=== PATIENT | male | born 1995 | race Caucasian/White ===

== ENCOUNTER 2018-10-31 13:08 | Emergency (ER) | payer BC ==
[2018-10-31 13:14] VITALS: BMI 28.7
[2018-10-31 13:16] VITALS: BP 135/77; PULSE 65; RESP 18; TEMP 98.1; O2SAT 99
--- NOTE | 2018-10-31 13:34 | ED PDOC ---
Upper Extremity Pain/Injury Time Seen by Provider: 10/31/18 13:19 Chief Complaint (Nursing): Finger,Hand,&Wrist Chief Complaint (Provider): Finger,Hand,&Wrist History Per: Patient History/Exam Limitations: no limitations Onset/Duration Of Symptoms: Days (x3) Current Symptoms Are (Timing): Still Present Additional Complaint(s): 23 year old right-hand dominant male, presents to the ED with a complaint of left wrist pain that exacerbates with bending status post heavy lifting 3 days ago. He denies any weakness or numbness. Patient reports using Motrin and Bengay ointment for relief but, also, admits to continuos heavy lifting since onset. Last Motrin use at 0300 earlier today. PCP: none provided Past Medical History Reviewed: Historical Data, Nursing Documentation, Vital Signs Vital Signs: Last Vital Signs Temp 98.1 F 10/31/18 13:15 Pulse 65 10/31/18 13:15 Resp 18 10/31/18 13:15 BP 135/77 10/31/18 13:15 Pulse Ox 99 10/31/18 13:15 - Medical History PMH: No Chronic Diseases - Surgical History Surgical History: Denies: No Surg Hx Other surgeries: heart surgery as an infant- cannot recall what was done - Family History Family History: States: Unknown Family Hx - Home Medications Home Medications: Ambulatory Orders Medication Instructions Recorded Ibuprofen [Motrin Tab] 1 tab PO Q6 PRN #20 tab 10/31/18 - Allergies Allergies/Adverse Reactions: Allergies Allergy/AdvReac Type Severity Reaction Status Date / Time No Known Allergies Allergy Verified 10/31/18 13:14 Review of Systems ROS Statement: Except As Marked, All Systems Reviewed And Found Negative Musculoskeletal: Positive for: Hand Pain (left wrist) Neurological: Negative for: Weakness, Numbness Physical Exam - Reviewed Nursing Documentation Reviewed: Yes Vital Signs Reviewed: Yes - Physical Exam Appears: Positive for: Well, Non-toxic, No Acute Distress Pulses-Radial (L): 2+ Extremity: Positive for: Normal ROM (extension of left wrist), Tenderness (dorsal radial aspect of left wrist on palpation with limited ROM on flexion secondary to pain), Capillary Refill (< 2 seconds to left wrist). Negative for: Deformity (left hand), Swelling (left hand) Neurologic/Psych: Positive for: Alert, Oriented. Negative for: Motor/Sensory Deficits - ECG O2 Sat by Pulse Oximetry: 99 (RA) Pulse Ox Interpretation: Normal Medical Decision Making Medical Decision Making: Time: 2 Initial Plan: * Motrin 600mg PO * XR left wrist Time: 5 --XR left wrist FINDINGS: BONES: Bone alignment and mineralization are normal. There is no acute displaced fracture or bone destruction. There is negative ulnar variance. JOINTS: Normal. No dislocation. SOFT TISSUES: Normal. OTHER FINDINGS: None. IMPRESSION: No acute fracture or dislocation. Negative ulnar variance. Time: 1433 --Immobilizer placed for left wrist. Upon provider re-evaluation, patient is medically stable, reports improvement in symptoms, and requires no further treatment in the ED at this time. Patient will be discharged home with Rx for Motrin and provided instructions for RICE method. Counseling was provided and all questions were answered regarding diagnosis. There is agreement to discharge plan. Advised to follow up with an orthopedist or return to ED if symptoms persist or worsen. Clinical Impression: Left wrist sprain --------- -------- Scribe Attestation: Documented by Anamaria Ordonez, acting as a scribe for Yumiko Fay PA-C. Provider Scribe Attestation: All medical record entries made by the Scribe were at my direction and personally dictated by me. I have reviewed the chart and agree that the record accurately reflects my personal performance of the history, physical exam, medical decision making, and the department course for this patient. I have also personally directed, reviewed, and agree with the discharge instructions and disposition. Disposition - Clinical Impression Clinical Impression: Left wrist sprain - Patient ED Disposition Is Patient to be Admitted: No Counseled Patient/Family Regarding: Studies Performed, Diagnosis, Need For Followup, Rx Given - Disposition Referrals: Esthela Wilson MD [Staff Provider] - Disposition: Routine/Home Disposition Time: 14:33 Condition: IMPROVED Prescriptions: Ibuprofen [Motrin Tab] 1 tab PO Q6 PRN #20 tab PRN Reason: Pain, Moderate (4-7) Instructions: Wrist Sprain (DC) Forms: [employer] (Italian), [facility] ED School/Work Excuse
--- NOTE | 2018-10-31 14:28 | RAD ---
Date of service: 10/31/2018 PROCEDURE: Left Wrist Radiographs. HISTORY: pain dorsal aspect COMPARISON: None. FINDINGS: BONES: Bone alignment and mineralization are normal. There is no acute displaced fracture or bone destruction. There is negative ulnar variance. JOINTS: Normal. No dislocation. SOFT TISSUES: Normal. OTHER FINDINGS: None. IMPRESSION: No acute fracture or dislocation. Negative ulnar variance.
== END 2018-10-31 15:07 | disposition home or self-care (01) ==
LOC: H.ER 13:08
DX: S63.502A Unspecified sprain of left wrist, initial encounter (principal); X50.0XXA Overexertion from strenuous movement or load, initial encounter

== ENCOUNTER 2019-02-12 13:35 | Emergency (ER) | payer BC ==
[2019-02-12 13:39] VITALS: BMI 30.9
[2019-02-12 13:40] VITALS: RESP 20; O2SAT 98
--- NOTE | 2019-02-12 14:30 | RAD ---
Date of service: 02/12/2019 PROCEDURE: Left Knee Radiographs. HISTORY: Pain. COMPARISON: None. TECHNIQUE: 2 views obtained. FINDINGS: BONES: Normal. No fracture. JOINTS: Normal. No osteoarthritis. JOINT EFFUSION: OTHER FINDINGS: None. IMPRESSION: No evidence of acute displaced fracture nor dislocation. Questionable small joint effusion
--- NOTE | 2019-02-12 14:42 | ED PDOC ---
Lower Extremity Pain/Injury Time Seen by Provider: 02/12/19 13:44 Chief Complaint (Nursing): Lower Extremity Problem/Injury Chief Complaint (Provider): Lower Extremity problem/injury History Per: Patient History/Exam Limitations: no limitations Onset/Duration Of Symptoms: Days (1x week) Current Symptoms Are (Timing): Still Present Severity: Moderate Additional Complaint(s): 23 year old male with no pertinent past medical history presents to the ED for an evaluation of left knee pain that started 1x week ago. 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 Since then patient has had pain, swelling, and worsening bruising to the left knee. Patient denies having numbness, tingling, or any other injuries. PMD: None provided. Past Medical History Reviewed: Historical Data, Nursing Documentation, Vital Signs Vital Signs: Last Vital Signs Temp 97.7 F 02/12/19 13:39 Pulse 82 02/12/19 13:39 Resp 20 02/12/19 13:39 BP 108/66 02/12/19 13:39 Pulse Ox 98 02/12/19 13:39 ISIDORO Report Viewed: Yes - Medical History PMH: No Chronic Diseases - Family History Family History: States: No Known Family Hx - Social History Current smoker - smoking cessation education provided: No Alcohol: None Drugs: Denies - Immunization History Hx Tetanus Toxoid Vaccination: No Hx Influenza Vaccination: No Hx Pneumococcal Vaccination: No - Home Medications Home Medications: Ambulatory Orders Medication Instructions Recorded Ibuprofen [Motrin Tab] 1 tab PO Q6 PRN #20 tab 10/31/18 Naproxen [Naprosyn] 500 mg PO BID PRN #10 tab 02/12/19 - Allergies Allergies/Adverse Reactions: Allergies Allergy/AdvReac Type Severity Reaction Status Date / Time No Known Allergies Allergy Verified 10/31/18 13:14 Review of Systems ROS Statement: Except As Marked, All Systems Reviewed And Found Negative Musculoskeletal: Positive for: Other (left knee pain, swelling, and worsening bruising) Neurological: Negative for: Numbness ((-) tingling) Physical Exam - Reviewed Nursing Documentation Reviewed: Yes Vital Signs Reviewed: Yes - Physical Exam Appears: Positive for: Well, Non-toxic, No Acute Distress Head Exam: Positive for: ATRAUMATIC, NORMOCEPHALIC Pulses-Dorsalis Pedis (L): 2+ Pulses-Dorsalis Pedis (R): 2+ Extremity: Positive for: Other (left knee: mild tenderness, ecchymosis, and swelling on medial surface of left knee. limited range of motion due to pain.) Neurological/Psych: Positive for: Awake, Alert, Oriented (3x) - ECG O2 Sat by Pulse Oximetry: 98 (RA) Pulse Ox Interpretation: Normal - Radiology X-Ray: Interpreted by Me, Viewed By Me (see MDM note) Medical Decision Making Medical Decision Makin:44 Initial impression: 23 year old male with left knee pain status post injury Initial plan: * XRay knee left 3 views * toradol 30 mg IM * reevaluation XRay knee left read and reviewed by me. (-) fractures. Left knee immobilized in immobilizer. Crutches provided. Patient advised to follow up with orthopedist for possible MRI. Scribe Attestation: Documented by Radha Haley, acting as a scribe for Tino Uriostegui Provider Scribe Attestation: All medical record entries made by the Scribe were at my direction and personally dictated by me. I have reviewed the chart and agree that the record accurately reflects my personal performance of the history, physical exam, medical decision making, and the department course for this patient. I have also personally directed, reviewed, and agree with the discharge instructions and disposition. Disposition - Clinical Impression Clinical Impression: Knee injury - Patient ED Disposition Is Patient to be Admitted: No - Disposition Referrals: [facility] [place] [Outside] [facility] [Outside] Anurag Mcgee III, MD [Staff Provider] - Disposition: Routine/Home Disposition Time: 14:39 Condition: STABLE Additional Instructions: FOLLOW UP WITH ORTHOPEDIST FOR FURTHER EVALUATION RETURN TO ED IMMEDIATELY IF SYMPTOMS WORSEN PAPITO [place]AM[place], thank you for letting us take care of you today. Your provider was Taryn Aguayo MD and you were treated for LT KNEE PAIN. The emergency medical care you received today was directed at your acute symptoms. If you were prescribed any medication, please fill it and take as directed. It may take several days for your symptoms to resolve. Return to the Emergency Department if your symptoms worsen, do not improve, or if you have any other problems. Please contact your doctor or call one of the physicians/clinics you have been referred to that are listed on the Patient Visit Information form that is included in your discharge packet. Bring any paperwork you were given at discharge with you along with any medications you are taking to your follow up visit. Our treatment cannot replace ongoing medical care by a primary care provider outside of the emergency department. Thank you for allowing the [facility] team to be part of your care today. If you had an X-Ray or CT scan: A Radiologist will review the ED reading if any change in treatment is needed we will contact you. If you had a blood, urine, or wound culture: It will take several days for the results, if any change in treatment is needed we will contact you. If you had an STI test: It will take 48 hours for the results. Please call after 1 week if you have not heard back. Prescriptions: RX: Naproxen [Naprosyn] 500 mg PO BID PRN #10 tab PRN Reason: Pain Instructions: How to Use Crutches, Knee Immobilizer (DC), Knee Sprain (DC), Goi ng Up and Down Curbs or Stairs With a Walker or Crutches Forms: [employer] ([place]), [facility] ED School/Work Excuse Print Language: CITIZEN OF [place]
[2019-02-12 15:56] VITALS: BP 118/70; PULSE 80; TEMP 98.1
== END 2019-02-12 15:15 | disposition home or self-care (01) ==
LOC: H.ER 13:35
DX: S89.92XA Unspecified injury of left lower leg, initial encounter (principal); W19.XXXA Unspecified fall, initial encounter; Y99.0 Civilian activity done for income or pay
CPT/HCPCS: 29530; 73562; 96372; 99285; J1885